=== PATIENT | male | born 1985 | race American Indian/Alaskan Native ===

== ENCOUNTER 2019-09-22 01:58 | Emergency (ER) | payer SELFPAY ==
[2019-09-22] MEDS ORDERED: Lidocaine 1% 20 ML MDV INFILT ONE (01:59)
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
[2019-09-22 06:20] VITALS: BP 125/76; PULSE 97
== END 2019-09-22 02:57 | disposition home or self-care (01) ==
LOC: FB.ED 01:58
DX: S01.01XA Laceration without foreign body of scalp, initial encounter (principal); Z88.0 Allergy status to penicillin; W22.8XXA Striking against or struck by other objects, initial encounter
CPT/HCPCS: 12001; 99283; J2001